=== PATIENT | male | born 1945 | race Caucasian/White ===

== ENCOUNTER → 2017-03-14 | Day surgery (SDC) | payer MEDICARE ==
[~2017-03-14] MED LIST: ACETAMINOPHEN 1000 MG/100 ML 100 ML IV ONE; ACETAMINOPHEN/HYDROcodone 325 MG/5 MG TAB ONE; BUPIVACAINE/EPINEPHRINE 0.5% PF 10 ML VIAL ONE; KETOROLAC TROMETHAMINE 30 MG/ML (IVP) VIAL IV PUSH ONE; LACTATED RINGER'S 1000 ML INJ 1,000 ML ONE; MEPERIDINE HCL 25 MG/ML VIAL ONE; MIDAZOLAM HCL 2 MG/2 ML VIAL ONE; MORPHINE SULFATE 4 MG/ML INJ ONE; ONDANSETRON HCL 4 MG/2 ML VIAL IV PUSH ONE; PROPOFOL 200 MG/20 ML AMP IV ONE; ceFAZolin INJ 1,000 MG VIAL ONE; metroNIDAZOLE 500 MG INJ 100 ML IV ONE
--- NOTE | 2017-03-14 09:40 | TN ---
cc: DERIAN ELLIOTT DIAZ BECERRIL DATE OF SURGERY 03/14/2017 PREOPERATIVE DIAGNOSIS Cholelithiasis, cholecystitis POSTOPERATIVE DIAGNOSIS Cholelithiasis, cholecystitis PROCEDURE Laparoscopic cholecystectomy ANESTHESIA General SURGEON Dr. Elliott CONFERENCE CENTER MANAGER Ms. Kenyatta Rios, advanced registered nurse practitioner The SUPERVISOR TELEPHONE CLERKS was present from beginning to the end of the case assisting in all portions of the procedure. It was necessary to have this individual in the room to assist in the above surgical procedure. The surgical procedure was assisted by the SUPERVISOR TELEPHONE CLERKS. The SUPERVISOR TELEPHONE CLERKS presence was necessary throughout the case for appropriate retraction, dissection, visualization, and resection of the important anatomical structures during the surgical procedure. The SUPERVISOR TELEPHONE CLERKS was assisting throughout the entirety of the operation. The skill set of the SUPERVISOR TELEPHONE CLERKS is medically and surgically necessary to safely complete the surgical procedure. During the surgical case the operating room mobile service rv technician was working instrument table and passing instruments to the attending surgeon and SUPERVISOR TELEPHONE CLERKS The SUPERVISOR TELEPHONE CLERKS was directly assisting the operating surgeon and involved in the technical aspects of the surgical case. INDICATIONS This is a pleasant 71-year-old gentleman who has textbook classic symptomatology consistent with biliary colic. Imaging showed gallstones. Plans were made for above. PROCEDURE The patient taken to the operating room, placed in the supine position. After endotracheal anesthesia, his abdomen was prepped with Betadine. We made an incision just below the umbilicus. Veress needle was inserted. Saline load test was performed and the abdomen insufflated to 50 mmHg. A 10 mm trocar was introduced. Camera was introduced. Two other working ports were placed 5 mm below the xyphoid, 5 mm in between the two previously placed ports. Gallbladder can be seen and is obviously inflamed. It has a fairly large sized stone. We are able to take down the mesentery to the gallbladder, identify the cystic duct and cystic artery both of which were doubly ligated and transected. The gallbladder was then teased off the gallbladder bed, placed in an EndoCatch. The incision at the umbilicus must be elongated to about 5-6 cm because the size of stone in the gallbladder. After this was removed, we then check our dissection site. Hemostasis assured. We irrigated. We check our dissection site, dissecting site without biliary leakage. The liver is smooth. Peritoneal surfaces are smooth. No other gross abnormalities visualized. We then removed the trocars. The fascial layer at the umbilicus, which was elongated, was closed with an interrupted 0 Vicryl and the skin was closed with 4-0 Vicryl. Steri-Strips applied. Sterile bandage applied. The patient tolerated the procedure well. There were no immediate postop complications. Derian Elliott MD JALLYSSA/JERRY /9:21 AM /9:28 AM MTDD
== END | disposition home or self-care (01) ==
LOC: ESDC 07:02 → EDSEX 08:00
PROVIDERS: ATTEND Surgery
DX: K80.10 Calculus of gallbladder with chronic cholecystitis without obstruction (principal)
CPT/HCPCS: 00790; 47562; 88304; J0131; J0690; J1885; J2175; J2250; J2270; J2405; J3010; J7120

== ENCOUNTER → 2017-10-24 | Day surgery (SDC) | payer MEDICARE ==
[~2017-10-24] MED LIST changes: -ACETAMINOPHEN 1000 MG/100 ML 100 ML IV ONE; -ACETAMINOPHEN/HYDROcodone 325 MG/5 MG TAB ONE; +BUPIVACAINE HCL PF 0.5% 30 ML VIAL; -BUPIVACAINE/EPINEPHRINE 0.5% PF 10 ML VIAL ONE; -KETOROLAC TROMETHAMINE 30 MG/ML (IVP) VIAL IV PUSH ONE; -LACTATED RINGER'S 1000 ML INJ 1,000 ML ONE; -MEPERIDINE HCL 25 MG/ML VIAL ONE; -MIDAZOLAM HCL 2 MG/2 ML VIAL ONE; -MORPHINE SULFATE 4 MG/ML INJ ONE; -ONDANSETRON HCL 4 MG/2 ML VIAL IV PUSH ONE; +PROPOFOL 200 MG/20 ML AMP IV; -PROPOFOL 200 MG/20 ML AMP IV ONE; +TRIAMCINOLONE ACETONIDE 40 MG/ML VIAL I-ARTICULR; -ceFAZolin INJ 1,000 MG VIAL ONE; -metroNIDAZOLE 500 MG INJ 100 ML IV ONE
== END | disposition home or self-care (01) ==
LOC: PHSDC 06:49
DX: M54.2 Cervicalgia (principal)
CPT/HCPCS: 64490; 64491; 64492; 99152

== ENCOUNTER 2017-11-19 11:39 | Emergency (ER) | payer MEDICARE ==
[~2017-11-19] VITALS: Ht 172.7 cm; Wt 95.0 kg
[~2017-11-19 11:39] MED LIST changes: -BUPIVACAINE HCL PF 0.5% 30 ML VIAL; +IBUP1TAB7 PO; -PROPOFOL 200 MG/20 ML AMP IV; -TRIAMCINOLONE ACETONIDE 40 MG/ML VIAL I-ARTICULR
[2017-11-19 12:09] VITALS: BP 171/77; PULSE 70; RESP 18; TEMP 98.3; O2SAT 98
[2017-11-19 14:07] LABS: AUTOMATED NEUTROPHIL # 9.8 TH/MM3 (1.8-7.7); BASOPHIL % 0.3 % (0.0-2.0); EOSINOPHIL % 0.4 % (0.0-4.0); HEMATOCRIT 44.2 % (39.0-51.0); LYMPH % 4.7 % (9.0-44.0); LYMPHOCYTE # 0.5 TH/MM3 (1.0-4.8); MEAN CELL VOLUME 88.3 FL (80.0-100.0); MEAN CORPUSCULAR HEMOGLOBIN 30.1 PG (27.0-34.0); MEAN PLATELET VOLUME 7.1 FL (7.0-11.0); MONO % 1.9 % (0.0-8.0); MONOCYTE # 0.2 TH/MM3 (0-0.9); NEUT % 92.7 % (16.0-70.0); PLATELET COUNT 286 TH/MM3 (150-450); RED CELL DISTRIBUTION WIDTH 13.9 % (11.6-17.2); WHITE BLOOD COUNT 10.5 TH/MM3 (4.0-11.0)
[2017-11-19 14:18] LABS: PROTHROMBIN TIME - PATIENT 10.3 SEC (9.8-11.6)
--- NOTE | 2017-11-19 14:23 | PD ---
HPI . Left thigh bruising Chief Complaint: Fall Time Seen by Provider: 13:08 Travel History International Travel<30 days: No Contact w/Intl Traveler<30days: No Traveled to known affect area: No History of Present Illness HPI This patient presents to us for the evaluation of bruising of his left thigh. He states that he suffered a fall 2010 days ago. He has already been seen and treated at another hospital for this. He has subsequently developed increasing bruising of his left medial thigh. He was seen at an urgent care center last night and was told that he needed to have further evaluation for possible "internal bleeding." He attempted to see his primary care provider today but the primary care provider is not available. He subsequently presented to us. He does not take an anticoagulant. The thigh pain has been getting progressively worse since the fall 2010 days ago. He rates the severity at 4/ 10. Additionally, he is complaining with some right anterior rib pain. 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 SKIN: warm/dry. Hematoma to the left medial thigh just above the knee. HEAD: Normocephalic. Atraumatic. EYES: Pupils equal and round. Extraocular movements are intact. ENT: Mucous membranes pink and moist. NECK: Supple. Full range of motion without pain.. CARDIOVASCULAR: Regular rate and rhythm. Heart sounds are normal. RESPIRATORY: No accessory muscle use. Clear to auscultation. Breath sounds equal bilaterally. Tenderness to palpation of a right anterior rib. MUSCULOSKELETAL: No obvious deformities. Normal muscle tone. NEUROLOGICAL: Awake and alert. No obvious cranial nerve deficits. Motor grossly within normal limits. Normal speech. PSYCHIATRIC: Appropriate mood and affect; insight and judgment normal. Data Data Last Documented VS Vital Signs Date Time Temp Pulse Resp B/P (MAP) Pulse Ox O2 Delivery O2 Flow Rate FiO2 11/19/17 12:09 98.3 70 18 171/77 (108) 98 Orders Orders Cta Runoff W Iv Contrast W 3d (11/19/17 ) Ribs, Uni (W/Exp Cxr-Min 3vw) (11/19/17 13:27) Basic Metabolic Panel (Bmp) (11/19/17 13:27) Complete Blood Count With Diff (11/19/17 13:27) Act Partial Throm Time (Ptt) (11/19/17 13:27) Prothrombin Time / Inr (Pt) (11/19/17 13:27) ^ Saline Lock (11/19/17 13:27) Labs Laboratory Tests Test 11/19/17 13:48 White Blood Count 10.5 TH/MM3 Red Blood Count 5.00 MIL/MM3 Hemoglobin 15.0 GM/DL Hematocrit 44.2 % Mean Corpuscular Volume 88.3 FL Mean Corpuscular Hemoglobin 30.1 PG Mean Corpuscular Hemoglobin Concent 34.0 % Red Cell Distribution Width 13.9 % Platelet Count 286 TH/MM3 Mean Platelet Volume 7.1 FL Neutrophils (%) (Auto) 92.7 % Lymphocytes (%) (Auto) 4.7 % Monocytes (%) (Auto) 1.9 % Eosinophils (%) (Auto) 0.4 % Basophils (%) (Auto) 0.3 % Neutrophils # (Auto) 9.8 TH/MM3 Lymphocytes # (Auto) 0.5 TH/MM3 Monocytes # (Auto) 0.2 TH/MM3 Eosinophils # (Auto) 0.0 TH/MM3 Basophils # (Auto) 0.0 TH/MM3 CBC Comment DIFF FINAL Differential Comment Prothrombin Time 10.3 SEC Prothromb Time International Ratio 1.0 RATIO Activated Partial Thromboplast Time 23.5 SEC Blood Urea Nitrogen 21 MG/DL Creatinine 1.26 MG/DL Random Glucose 101 MG/DL Calcium Level 8.4 MG/DL Sodium Level 142 MEQ/L Potassium Level 4.5 MEQ/L Chloride Level 108 MEQ/L Carbon Dioxide Level 24.3 MEQ/L Anion Gap 10 MEQ/L Estimat Glomerular Filtration Rate 56 ML/MIN [facility] Medical Decision Making Medical Screen Exam Complete: Yes Emergency Medical Condition: Yes Differential Diagnosis Differential diagnosis includes but is not limited to hematoma, traumatic aneurysm, AV fistula, coagulopathy, platelet dysfunction Narrative Course This patient presents for the evaluation of a left thigh hematoma. He is concerned that he has internal bleeding and that he could from it. I have ordered a CTA. He also has some right anterior rib pain. I have ordered right rib films. He states that he does not need anything for the pain. CBC & BMP Diagram 11/19/17 13:48 Calcium Level 8.4 L His care is being turned over to Dr. Deng pending the results of his CTA. Diagnosis Primary Impression: Hematoma Additional Impression: Contusion of right chest wall Qualified Codes: S20.211A - Contusion of right front wall of thorax, initial encounter Patient Instructions: General Instructions, Hematoma (ED) Condition: Stable Dorene Sena MD Nov 19, 2017 14:23
[2017-11-19 14:39] LABS: BICARBONATE 24.3 MEQ/L (21.0-32.0); CALCIUM 8.4 MG/DL (8.5-10.1); CREATININE 1.26 MG/DL (0.60-1.30)
[2017-11-19] MEDS ORDERED: IOHEXOL 180 MG/ML 20 ML VIAL (for RAD DIAG) IVCONTRAST ONE (14:41)
--- NOTE | 2017-11-19 14:54 | RADRPT ---
EXAM DATE: 11/19/2017 2:26 PM EDT AGE/SEX: 72 years / Male INDICATIONS: Right rib pain. Patient states he fell face down and hit chest. Patient complains of ri ght side rib pain, breast area. CLINICAL DATA: This is the patient's initial encounter. Patient reports that signs and symptoms have been present for 1 week and indicates a pain score of 3/10. MEDICAL/SURGICAL HISTORY: None. None. COMPARISON: No prior [place] exams available for comparison. FINDINGS: 5 views of the right ribs demonstrate no fracture or acute abnormality. Expiratory view demonstrates no pneumothorax. The visualized surrounding structures demonstrate no acute finding. Cholecystectomy clips are present. There are degenerative changes of the thoracic and lumbar spine. CONCLUSION: No rib fracture or acute abnormality is identified. Electronically signed by: Xavier Mendez MD 11/19/2017 2:52 PM EDT
--- NOTE | 2017-11-19 17:11 | PD ---
Physical Exam Narrative Received sign out from previous provider to follow up CTA with runoff. Please see prior provider's note for further details. 72yo M with ecchymoses in left thigh after fall. Labs reviewed, no leukocytosis. H/H normal at 15/44.2. BMP unremarkable. Xray right ribs showed no rib fracture or acute abnormality. Pt fell 11 days ago and has ecchymoses in left thigh. Left thigh compartment is soft. Distal pulses intact in bilateral lower extremity. Pt is well appearing. CTA showed moderate atherosclerotic disease bilaterally as above. Very poor runoff distally on the left side below the level of the ankle. Poor single vessel runoff on the right side below the ankle. Loculated fluid collection within the posterior left thigh musculature measuring about 4 x 2.5cm and extending over a length of about 8cm. This is likely a hematoma. Pt has good distal pulses in both feet, warm to touch and instructed pt to follow up with vascular surgery as needed. Return precautions given. Data Data Last Documented VS Vital Signs Date Time Temp Pulse Resp B/P (MAP) Pulse Ox O2 Delivery O2 Flow Rate FiO2 11/19/17 12:09 98.3 70 18 171/77 (108) 98 Orders Orders Cta Runoff W Iv Contrast W 3d (11/19/17 ) Ribs, Uni (W/Exp Cxr-Min 3vw) (11/19/17 13:27) Basic Metabolic Panel (Bmp) (11/19/17 13:27) Complete Blood Count With Diff (11/19/17 13:27) Act Partial Throm Time (Ptt) (11/19/17 13:27) Prothrombin Time / Inr (Pt) (11/19/17 13:27) ^ Saline Lock (11/19/17 13:27) Ed Discharge Order (11/19/17 19:26) Labs Laboratory Tests Test 11/19/17 13:48 White Blood Count 10.5 TH/MM3 Red Blood Count 5.00 MIL/MM3 Hemoglobin 15.0 GM/DL Hematocrit 44.2 % Mean Corpuscular Volume 88.3 FL Mean Corpuscular Hemoglobin 30.1 PG Mean Corpuscular Hemoglobin Concent 34.0 % Red Cell Distribution Width 13.9 % Platelet Count 286 TH/MM3 Mean Platelet Volume 7.1 FL Neutrophils (%) (Auto) 92.7 % Lymphocytes (%) (Auto) 4.7 % Monocytes (%) (Auto) 1.9 % Eosinophils (%) (Auto) 0.4 % Basophils (%) (Auto) 0.3 % Neutrophils # (Auto) 9.8 TH/MM3 Lymphocytes # (Auto) 0.5 TH/MM3 Monocytes # (Auto) 0.2 TH/MM3 Eosinophils # (Auto) 0.0 TH/MM3 Basophils # (Auto) 0.0 TH/MM3 CBC Comment DIFF FINAL Differential Comment Prothrombin Time 10.3 SEC Prothromb Time International Ratio 1.0 RATIO Activated Partial Thromboplast Time 23.5 SEC Blood Urea Nitrogen 21 MG/DL Creatinine 1.26 MG/DL Random Glucose 101 MG/DL Calcium Level 8.4 MG/DL Sodium Level 142 MEQ/L Potassium Level 4.5 MEQ/L Chloride Level 108 MEQ/L Carbon Dioxide Level 24.3 MEQ/L Anion Gap 10 MEQ/L Estimat Glomerular Filtration Rate 56 ML/MIN MDM Supervised Visit with EMERITA: No Diagnosis Primary Impression: Hematoma Additional Impression: Contusion of right chest wall Qualified Codes: S20.211A - Contusion of right front wall of thorax, initial encounter Referrals: Josephine Hicks MD Patient Instructions: General Instructions, Hematoma (ED) Departure Forms: Tests/Procedures Additional Instruction: Please follow up with your primary care physician. Follow up with vascular as needed. Med/Other Pt SpecificInfo: No Change to Meds Disposition: 01 DISCHARGE HOME Condition: Stable Audrey Deng Nov 19, 2017 17:11
--- NOTE | 2017-11-19 19:12 | RADRPT ---
EXAM DATE: 11/19/2017 5:23 PM EDT AGE/SEX: 72 years / Male INDICATIONS: Left leg pain and swelling. CLINICAL DATA: This is the patient's initial encounter. Patient reports that signs and symptoms have been present for 1 day and indicates a pain score of 5/10. MEDICAL/SURGICAL HISTORY: . Dormant Sarcoidosis. Cholecystectomy. RADIATION DOSE: 11.46 CTDI (mGy) COMPARISON: No prior [place] exams available for comparison. TECHNIQUE: Volumetric scanning was performed using a multi-row detector CT scanner during bolus infu mat of 93 ml Omnipaque 350 (iohexol) nonionic water-soluble contrast as a single exam dose. The d abilio was post processed with a variety of visualization algorithms including full volume maximum inten sity projection, multi-planar sliding thin slab reformation, curved planar reformation, and surface r endering techniques. Using automated exposure control and adjustment of the mA and/or kV according t o patient size, radiation dose was kept as low as reasonably achievable to obtain optimal diagnostic quality images. FINDINGS: The abdominal aorta is patent without aneurysm. Moderate atherosclerotic disease. The celiac, superio r mesenteric and inferior mesenteric arteries are patent. Both common iliac and internal iliac arteries and external iliac arteries are patent. There is moderate atherosclerotic disease in both femoral and popliteal arteries without significant stenosis. Metastatic disease is noted without significant stenosis to the level of the trifurcation b ilaterally. In both legs there is moderate atherosclerotic disease throughout. There is very poor runoff on the l eft side below the ankle. Poor single vessel runoff on the right side below the ankle. There is a fluid collection in the posterior left thigh musculature measuring about 4 x 2.5 cm in lynnette meter and extending over a length of about 8 cm. Etiology is unclear. No acute findings within the ab domen and pelvis. CONCLUSION: 1. Moderate atherosclerotic disease bilaterally as above. Very poor runoff distally on the left side below the level of the ankle. Poor single vessel runoff on the right side below the ankle. 2. Loculated fluid collection within the posterior left thigh musculature measuring about 4 x 2.5 cm and extending over a length of about 8 cm. Electronically signed by: Derian Alatorre MD 11/19/2017 7:11 PM EDT
== END 2017-11-19 19:50 | disposition home or self-care (01) ==
LOC: NEPD 11:39
DX: S20.211A Contusion of right front wall of thorax, initial encounter (principal); S70.12XA Contusion of left thigh, initial encounter; W19.XXXA Unspecified fall, initial encounter
CPT/HCPCS: 71101; 75635; 80048; 85025; 85610; 85730; 99285; Q9965